=== PATIENT | female | born 1990 | race Caucasian/White ===

== ENCOUNTER 2016-09-20 09:09 | Emergency (ER) | payer OTHER ==
--- NOTE | 2016-09-21 10:00 | ER ---
ADMIT: 09/20/2016 RM/LOC: ER [facility] MR#: [id number] [address] [id number] ZAID HERNÁNDEZ S [facility] [place] [address] Emergency Room Report SEX: F AGE: 26 : 1990 DATE: 09/20/2016 HISTORY OF PRESENT ILLNESS: The patient presents to the emergency room complaining of chest wall pain, very tender to touch. Denies having any nausea or vomiting. She did mention having some blurry vision, shaky at work, and she works for [employer] company, and some left shoulder pain with shortness of breath. She does not have past medical history. PHYSICAL EXAMINATION: GENERAL: She is an obese patient. She is 26 years of age. VITAL SIGNS: Within normal limits. Blood pressure 132/86, pulse 81, respirations 16, temp is 97.9, O2 sats 96%. CHEST: On examination, chest-wall tenderness. RESPIRATORY: No distress. No wheezes or crackles. ABDOMEN: Obese, nontender. SKIN: Good color and turgor. NEURO/PSYCH: Oriented x4. Mood and affect is appropriate. LABORATORY AND DIAGNOSTIC DATA: At the consult of Dr. Laughlin, we did do a chest x-ray, which read by Radiology some mild cardiomegaly. CBC within normal limits. Bedside glucose 92. Troponin 0.015. EKG was done and there is no pathology. Anxiety, costochondritis, chest wall pain. Given ketorolac which she said lower the pain from a 10/7. She is able to talk she is comfortable in her bed. CLINICAL IMPRESSION: 1. Anxiety. 2. Chest wall pain. 3. Costochondritis. The patient will be discharged with ketorolac and prednisone and follow up with city call Dr. Webb. She is encouraged to get some weight loss plan going. Increase fluids. CARISSA Bonilla / Rashawn Laughlin MD / modl JOB #: [id number] CC: Rashawn Laughlin MD, Attending Physician UNKNOWN, Family Physician
== END 2016-09-20 12:20 | disposition home or self-care (01) ==
LOC: ER 09:09
DX: M94.0 Chondrocostal junction syndrome [Tietze] (principal); F41.9 Anxiety disorder, unspecified; E66.9 Obesity, unspecified